=== PATIENT | female | born 1965 | race Caucasian/White ===

== ENCOUNTER → 2022-03-21 | Outpatient (CLI) | payer BC ==
[~2022-03-21] MED LIST: CHOL500050 PO; GABA-531 PO; LEVO125T11 PO; OMEP40CA21 PO; PEDI1TAB30 PO; VIACTIV SOFT C1 EACH PO
== END | disposition home or self-care (01) ==
LOC: SHCH 14:21
PROVIDERS: ATTEND Student in an Organized Health Care Education/Training Program
DX: R55 Syncope and collapse (principal)
CPT/HCPCS: 93306

== ENCOUNTER 2022-04-04 05:38 | Day surgery (SDC) | payer BC ==
[2022-04-03 14:52] VITALS: BP 205/98
[2022-04-03 15:09] LABS: BASOPHILS % (AUTO) 0.5 % (0.0-5.0); EOSINOPHILS % (AUTO) 2.9 % (0.0-8.0); LYMPHOCYTES % (AUTO) 19.5 % (21.0-51.0); MEAN CORPUSCULAR HEMOGLOBIN 28.4 pg (27.0-33.0); MEAN CORPUSCULAR VOLUME 91.5 fL (79-99); MONOCYTES % (AUTO) 7.7 % (3.0-13.0); NEUTROPHILS % (AUTO) 69.2 % (40.0-77.0); PLATELET COUNT (AUTO) 280 K/uL (130-400); RED BLOOD CELL COUNT(AUTO) 4.37 MIL/uL (4.00-5.50); RED CELL DISTRIBUTION WIDTH 14.5 % (11.0-15.5); WHITE BLOOD COUNT (AUTO) 5.6 K/uL (4.8-10.8)
[2022-04-03 15:17] LABS: CREATININE 1.3 mg/dL (0.5-1.5); POTASSIUM 3.8 mmol/L (3.5-5.1)
[2022-04-03 15:19] LABS: INR 0.95 (0.85-1.15); PROTHROMBIN TIME 10.4 SEC (9.6-11.6)
[2022-04-03 15:29] LABS: B-TYPE NATRIURETIC PEPTIDE 114 pg/mL (0-100)
[2022-04-04] VITALS (16 sets, daily range): BP systolic 151–188; BP diastolic 70–97
[~2022-04-04] VITALS: Ht 167.6 cm; Wt 140.3 kg
[~2022-04-04 05:38] MED LIST changes: +CHOL500045 PO; -CHOL500050 PO; +CRAN400T3 PO; -LEVO125T11 PO; +LEVO200C2 PO; +MVIT PO; -PEDI1TAB30 PO; +[UNRECOGNIZED DRUG - CODE] PO
[2022-04-04] MEDS ORDERED: 0.9% NACL 500ML IV.SOLN 500 ML IV SCH (06:00)
[2022-04-04] MEDS ORDERED: 0.9%NACL 1000ML 1,000 ML IV ONE (06:11)
[2022-04-04] MEDS ORDERED: VERAPAMIL HCL 2.5 MG/ML VIAL ONE (07:15)
[2022-04-04] MEDS ORDERED: MIDAZOLAM HCL 1 MG/ML 2ML VIAL ONE ×2 (07:16→07:34)
[2022-04-04] MEDS ORDERED: NITROGLYCERIN 50MG VIAL ONE (07:16)
[2022-04-04] MEDS ORDERED: IOHEXOL 350 MG/ML 100ML INFUS..BTL IV ONE (07:16)
[2022-04-04] MEDS ORDERED: IOHEXOL-350 50ML VIAL IV ONE (07:16)
[2022-04-04] MEDS ORDERED: HEPARIN 10,000 UNIT/10ML (1,000 UNIT/ML) VIAL ONE (07:16)
[2022-04-04] MEDS ORDERED: FENTANYL CITRATE PF 50 MCG/1 ML 2ML VIAL ONE (07:16)
[2022-04-04] MEDS ORDERED: LIDOCAINE HCL 400MG/20ML VIAL ONE (07:17)
[2022-04-04] MEDS ORDERED: DiphenhydrAMINE HCL 50 MG/ML VIAL ONE (08:03)
[2022-04-04] MEDS ORDERED: 0.9%NACL 1000ML 1,000 ML IV SCH (08:30)
[2022-04-04] MEDS ORDERED: GLUCAGON 1MG KIT 1 MG ML IM PRN (08:30)
[2022-04-04] MEDS ORDERED: DEXTROSE 50%-WATER 50 ML DISP.SYRIN IV PRN (08:30)
== END 2022-04-04 13:00 | disposition home or self-care (01) ==
LOC: DAH 05:38
PROVIDERS: ATTEND Student in an Organized Health Care Education/Training Program
DX: R55 Syncope and collapse (principal); E78.5 Hyperlipidemia, unspecified; I47.29 Other ventricular tachycardia; E66.01 Morbid (severe) obesity due to excess calories; I10 Essential (primary) hypertension; E03.9 Hypothyroidism, unspecified; Z79.899 Other long term (current) drug therapy; Z79.890 Hormone replacement therapy; Z79.01 Long term (current) use of anticoagulants; Z98.890 Other specified postprocedural states; Z90.49 Acquired absence of other specified parts of digestive tract; Z90.710 Acquired absence of both cervix and uterus; Z98.84 Bariatric surgery status; Z82.49 Family history of ischemic heart disease and other diseases of the circulatory system; Z88.2 Allergy status to sulfonamides; Z68.43 Body mass index [BMI] 50.0-59.9, adult
CPT/HCPCS: 80048; 83880; 85025; 85610; 85730; 36415; 71045; 93005; 93458; 82948 ×2; C1769 ×2; C1894 ×2; J1200; J3010; J3490 ×3; J7030; J1644 ×2; J2250 ×2; Q9967; A4215; A4335; A4222; A4221; A4663; A4216; A4606; Q9965; A4223 ×3; A4520; A4554; 96360; 96361; 99156; 99157